=== PATIENT | male | born 1935 | race African-American/Black ===

== ENCOUNTER → 2017-12-19 | Outpatient (CLI) | payer MEDICARE, MEDICAID ==
[~2017-12-19] MED LIST: ACET500C42 PO; ATOR40TA70 PO; BRIM5DRO EACHEYE; DEXL60CA3 PO; DORZ10DR7 EACHEYE; DUTA0.5C2 PO; TAMS0.4C31 PO; TRAV2.5D EACHEYE
== END | disposition home or self-care (01) ==
LOC: RAD 11:07
PROVIDERS: ATTEND Specialist
DX: R07.81 Pleurodynia (principal)
CPT/HCPCS: 71101